=== PATIENT | female | born 1990 ===

== ENCOUNTER 2018-12-24 07:19 | Outpatient (CLI) | payer OTHER | END 2018-12-24 07:21 | disposition home or self-care (01) | LOC: MRI 07:19 | DX: S06.2X9D Diffuse traumatic brain injury with loss of consciousness of unspecified duration, subsequent encounter (principal); F07.0 Personality change due to known physiological condition | CPT/HCPCS: 70551 ==

== ENCOUNTER 2021-07-04 11:02 | Emergency (ER) | payer OTHER ==
[~2021-07-04] VITALS: Ht 160 cm; Wt 65.3 kg
[2021-07-04] MEDS ORDERED: AMBIEN5 MG (11:35)
[2021-07-04] MEDS ORDERED: CONCERTA54 MG (11:36)
== END 2021-07-04 16:02 | disposition home or self-care (01) ==
LOC: ER 11:02
DX: R06.02 Shortness of breath (principal); F41.8 Other specified anxiety disorders